=== PATIENT | female | born 1990 | race Caucasian/White ===

== ENCOUNTER 2017-02-25 09:19 | Outpatient (CLI) | payer BC | END 2017-02-25 09:20 | disposition home or self-care (01) | DX: Z79.899 Other long term (current) drug therapy (principal) ==

== ENCOUNTER 2018-06-09 08:00 | Outpatient (CLI) | payer OTHER | END 2018-06-09 08:01 | disposition home or self-care (01) | LOC: LAB 08:00 → DI 08:01 | PROVIDERS: ATTEND Nurse Practitioner Obstetrics & Gynecology | DX: Z36.9 Encounter for antenatal screening, unspecified (principal) ==

== ENCOUNTER 2018-06-09 14:23 | Outpatient (CLI) | payer OTHER ==
[2018-06-09 16:08] LABS: MUDS CUTOFF CONCENTRATIONS CUTOFF CONC BELOW:
[2018-06-09 16:26] LABS: AMPHETAMINE SCREEN,URINE NEGATIVE (NEGATIVE); BENZODIAZEPINES SCREEN, URINE NEGATIVE (NEGATIVE); COCAINE SCREEN URINE NEGATIVE (NEGATIVE); METHADONE SCREEN, URINE NEGATIVE (NEGATIVE); METHAMPHETAMINES SCREEN, URINE NEGATIVE (NEGATIVE); OPIATE SCREEN, URINE NEGATIVE (NEGATIVE); OXYCODONE SCREEN, URINE NEGATIVE (NEGATIVE); PROPOXYPHENE SCREEN, URINE NEGATIVE (NEGATIVE); TRICYCLIC ANTIDEPRESSANT,URINE NEGATIVE (NEGATIVE)
== END 2018-06-09 14:24 | disposition home or self-care (01) ==
LOC: LAB.R 14:23
PROVIDERS: ATTEND Nurse Practitioner Obstetrics & Gynecology
DX: Z36.9 Encounter for antenatal screening, unspecified (principal)
CPT/HCPCS: 80306; 87491; 87591

== ENCOUNTER 2018-06-09 14:49 | Outpatient (CLI) | payer OTHER ==
[2018-06-09 15:27] LABS: BASOPHILS % (AUTO) 0.4 %; EOSINOPHILS % (AUTO) 0.4 %; HGB - HEMOGLOBIN 12.5 g/dL (12.0-16.0); LYMPHOCYTES # (AUTO) 2.5 10^3/uL (1.5-3.5); LYMPHOCYTES % (AUTO) 26.2 %; MEAN CORPUSCULAR HEMOGLOBIN 32.2 pg (27.0-31.0); MEAN CORPUSCULAR HGB CONC 34.1 g/dL (32.0-36.0); MEAN CORPUSCULAR VOLUME 94.6 fL (81.0-99.0); MEAN PLATELET VOLUME 7.2 fL (7.9-10.8); MONOCYTES # (AUTO) 0.7 10^3/uL (0.0-1.0); MONOCYTES % (AUTO) 7.7 %; NEUTROPHILS # (AUTO) 6.2 10^3/uL (1.5-6.6); NEUTROPHILS % (AUTO) 65.3 %; PLT - PLATELET COUNT 323 10^3/uL (130-450); RED BLOOD COUNT 3.89 10^6/uL (4.20-5.40); RED CELL DISTRIBUTION WIDTH 12.8 % (12.0-15.0); WHITE BLOOD COUNT 9.5 x10^3/uL (4.8-10.8)
[2018-06-09 15:30] LABS: BILIRUBIN,URINE NEGATIVE (NEGATIVE); GLUCOSE, URINE (UA) NEGATIVE (NEGATIVE); KETONES,URINE (UA) TRACE mg/dL (NEGATIVE); LEUKOCYTE ESTERASE, URINE NEGATIVE (NEGATIVE); NITRITE,URINE NEGATIVE (NEGATIVE); OCCULT BLOOD,URINE TRACE-INTA (NEGATIVE); PROTEIN,URINE NEGATIVE (NEGATIVE); UROBILINOGEN,URINE 0.2 (NORMAL) E.U./dL (NORMAL)
[2018-06-09 15:31] LABS: CLARITY,URINE CLEAR (CLEAR)
[2018-06-09 15:36] LABS: BACTERIA,URINE Rare /HPF (None Seen); RBC,URINE 0-5 /HPF (0-5); SQUAMOUS EPITHELIAL CELL,UR MOD Squamous (<= Few)
[2018-06-10 13:21] LABS: HEPATITIS B SURFACE ANTIGEN NON-REACTIVE (NON-REACTIVE)
[2018-06-10 13:23] LABS: HEPATITIS C ANTIBODY NON-REACTIVE (NON-REACTIVE)
[2018-06-10 14:13] LABS: HIV AG/AB 4TH GEN NON-REACTIVE (NON-REACTIVE)
== END 2018-06-09 14:50 | disposition home or self-care (01) ==
LOC: LAB 14:49
PROVIDERS: ATTEND Nurse Practitioner Obstetrics & Gynecology
DX: Z36.9 Encounter for antenatal screening, unspecified (principal)
CPT/HCPCS: 36415; 76801; 76817; 80306; 81001; 81599; 85025; 86592; 86762; 86803; 86850; 86900; 86901; 87340; 87389; 87491; 87591

== ENCOUNTER 2018-06-23 13:00 | Outpatient (CLI) | payer OTHER | END 2018-06-23 13:01 | disposition home or self-care (01) | LOC: DI 13:00 | PROVIDERS: ATTEND Nurse Practitioner Obstetrics & Gynecology | DX: Z53.9 Procedure and treatment not carried out, unspecified reason (principal) ==

== ENCOUNTER 2018-09-01 12:39 | Outpatient (CLI) | payer OTHER ==
--- NOTE | 2018-09-01 15:53 | Ultrasound Report ---
Reason: ENCTR FOR SCREENING Procedure Date: 09/01/2018 Accession Number: [id number] / [id number] Procedure: US - OB Detailed Eval CPT Code: FULL RESULT: EXAM: COMPLETE OBSTETRICAL ULTRASOUND EXAM DATE: 09/01/2018 02:14 PM. CLINICAL HISTORY: anatomic survey. COMPARISON: 06/23/2018 TECHNIQUE: Real-time sonographic evaluation of the fetus performed by the flatwork catcher. Multiple senior human resources representative static images were saved for review. DATING: EGA 20 weeks 4 days with LEO 01/15/2019 based on LMP of 04/10/2018. EGA 21 weeks 0 days with LEO 01/12/2019 based on the current ultrasound. GENERAL EVALUATION Damian . Cardiac activity: 150 bpm. movement: Present. Presentation: Cephalic. Placenta: Posterior position. No evidence for previa. Umbilical cord: 3 vessel cord. Central placental cord origin. Amniotic fluid: Subjectively normal. MVP 4.4 cm. BIOMETRY Bi-Parietal Diameter (BPD): 5.1 cm, 21 weeks 3 days Head Circumference (HC): 18.6 cm, 20 weeks 6 days Abdominal Circumference (AC): 15.9 cm, 21 weeks 0 days Femur Length (FL): 3.4 cm, 20 weeks 5 days Estimated Weight: 385 gm, 63rd percentile . ANATOMY The intracranial structures, profile, face/nose/lips, spine, 4 chamber heart and outflow tracts, stomach, abdominal wall and cord insertion, diaphragm, kidneys, bladder, and extremities were seen and demonstrate no abnormality. MATERNAL STRUCTURES Uterus: Unremarkable. Cervix: Long and closed. Transabdominal length 3.5 cm. Right ovary/adnexa: Unremarkable. Left ovary/adnexa: Unremarkable. Free fluid: None. IMPRESSION: 1. Damian intrauterine with gestational age 21 weeks 0 days based on current ultrasound, concordant with the expected age by LMP. 2. Estimated weight is within expected limits for assigned dating. 3. Normal anatomic survey. No anatomic abnormalities are detected at this time. RADIA
== END 2018-09-01 12:40 | disposition home or self-care (01) ==
LOC: DI 12:39
PROVIDERS: ATTEND Registered Nurse
DX: Z36.9 Encounter for antenatal screening, unspecified (principal); Z3A.21 21 weeks gestation of pregnancy
CPT/HCPCS: 76811

== ENCOUNTER 2018-10-27 12:34 | Outpatient (CLI) | payer OTHER ==
[2018-10-27 13:38] LABS: BASOPHILS % (AUTO) 0.2 %; EOSINOPHILS % (AUTO) 0.5 %; LYMPHOCYTES % (AUTO) 13.9 %; MEAN CORPUSCULAR HEMOGLOBIN 33.2 pg (27.0-31.0); MEAN CORPUSCULAR HGB CONC 35.4 g/dL (32.0-36.0); MEAN CORPUSCULAR VOLUME 93.8 fL (81.0-99.0); MEAN PLATELET VOLUME 6.9 fL (7.9-10.8); NEUTROPHILS % (AUTO) 77.4 %; PLT - PLATELET COUNT 360 10^3/uL (130-450); RED CELL DISTRIBUTION WIDTH 12.7 % (12.0-15.0)
[2018-10-27 13:55] LABS: ABNORMAL LYMPHS % (MANUAL) 0 %; BAND NEUTROPHILS % (MANUAL) 0 %
[2018-10-27 14:12] LABS: LYMPHOCYTES # (MANUAL) 1.4 10^3/uL (1.5-3.5); LYMPHOCYTES % (MANUAL) 12 %; METAMYELOCYTES % (MANUAL) 1 %; MONOCYTES # (MANUAL) 0.8 10^3/uL (0.0-1.0); MYELOCYTES % (MANUAL) 1 %; NEUTROPHILS # (MANUAL) 9.5 10^3/uL (1.5-6.6); NEUTROPHILS % (MANUAL) 79 %
[2018-10-27 14:13] LABS: DIFFERENTIAL COMMENT MANUAL DIFFERENTIAL
[2018-10-27 15:03] LABS: HB2 TOTAL 11.1 g/dL; HEMOGLOBIN A1C 0.46 g/dL; HEMOGLOBIN A1C % 5.9 % (4.6-6.2)
== END 2018-10-27 12:35 | disposition home or self-care (01) ==
LOC: LAB 12:34
PROVIDERS: ATTEND Registered Nurse
DX: Z34.82 Encounter for supervision of other normal pregnancy, second trimester (principal)
CPT/HCPCS: 36415; 82950; 83036; 85025; 86850

== ENCOUNTER 2018-12-15 08:00 | Outpatient (CLI) | payer OTHER | END 2018-12-15 23:59 | disposition home or self-care (01) | LOC: LAB.R 08:00 | PROVIDERS: ATTEND Registered Nurse | DX: Z33.1 Pregnant state, incidental (principal); O09.72 Supervision of high risk pregnancy due to social problems, second trimester | CPT/HCPCS: 87081; 87491; 87591; 87797 ==

== ENCOUNTER 2018-12-25 05:03 | Inpatient (IN) | payer MEDICAID, OTHER ==
[2018-12-25 05:55] LABS: RUPTURE OF MEMBRANES PLUS POSITIVE (NEGATIVE)
[2018-12-25] MEDS ORDERED: SODIUM CHLORIDE FLUSH 0.9% 10 ML SYRINGE IVP PRN (06:23)
[2018-12-25] MEDS ORDERED: SODIUM CHLORIDE FLUSH 0.9% 10 ML SYRINGE ONE (06:25)
[2018-12-25] MEDS ORDERED: OXYTOCIN/SODIUM CHLORIDE 500 ML IV SCH (07:00)
[2018-12-25 07:20] LABS: BASOPHILS % (AUTO) 0.2 %; EOSINOPHILS # (AUTO) 0.1 10^3/uL (0.0-0.7); EOSINOPHILS % (AUTO) 0.4 %; HGB - HEMOGLOBIN 11.2 g/dL (12.0-16.0); LYMPHOCYTES # (AUTO) 1.8 10^3/uL (1.5-3.5); MEAN CORPUSCULAR HEMOGLOBIN 32.6 pg (27.0-31.0); MEAN CORPUSCULAR HGB CONC 33.8 g/dL (32.0-36.0); MEAN CORPUSCULAR VOLUME 96.5 fL (81.0-99.0); MEAN PLATELET VOLUME 7.9 fL (7.9-10.8); MONOCYTES # (AUTO) 1.1 10^3/uL (0.0-1.0); NEUTROPHILS # (AUTO) 10.2 10^3/uL (1.5-6.6); NEUTROPHILS % (AUTO) 77.4 %; PLT - PLATELET COUNT 306 10^3/uL (130-450); RED BLOOD COUNT 3.43 10^6/uL (4.20-5.40); RED CELL DISTRIBUTION WIDTH 13.3 % (12.0-15.0); WHITE BLOOD COUNT 13.2 x10^3/uL (4.8-10.8)
[2018-12-25] MEDS: SODIUM CHLORIDE FLUSH 0.9% 10 ML SYRINGE IVP SCH ×2 (08:30→17:04)
[2018-12-25] MEDS: LACTATED RINGERS 1,000 ML IV SCH ×2 (09:00→14:46)
[2018-12-25] MEDS ORDERED: VANCOMYCIN INJ 2 GM in SODIUM CHLORIDE 0.9% 500 ML IV SCH (09:00)
[2018-12-25] MEDS ORDERED: fentaNYL 100 MCG/2 ML VIAL ONE ×3 (09:44→19:39)
[2018-12-25] MEDS ORDERED: ROPIVACAINE 0.2% PF 20 ML AMPULE ONE ×2 (09:45→15:54)
[2018-12-25] MEDS ORDERED: METOCLOPRAMIDE 10 MG/2 ML VIAL IVP PRN ×2 (09:46→11:19)
[2018-12-25] MEDS ORDERED: NALOXONE 0.4 MG/ML VIAL IVP PRN ×2 (09:46→11:19)
[2018-12-25] MEDS ORDERED: LACTATED RINGERS 500 ML IV ONE ×2 (09:46→11:19)
[2018-12-25] MEDS ORDERED: fent/BUPIV 2 MCG/0.125% 250 ML EP PRN (09:46)
[2018-12-25] MEDS ORDERED: ePHEDrine 50 MG/ML VIAL IVP PRN ×2 (09:46→11:19)
[2018-12-25] MEDS ORDERED: ONDANSETRON 4 MG/2 ML VIAL IVP PRN ×2 (09:46→11:19)
[2018-12-25] MEDS ORDERED: diphenhydrAMINE INJ 50 MG/ML VIAL IVP PRN ×2 (09:46→11:19)
[2018-12-25] MEDS ORDERED: NALBUPHINE 10 MG/ML AMP IVP PRN ×2 (09:46→11:19)
[2018-12-25] MEDS ORDERED: fent/BUPIV 2 MCG/0.125% 250 ML EP ONE (10:58)
[2018-12-25] MEDS: ONDANSETRON 4 MG/2 ML VIAL IVP PRN ×2 (11:23→16:31)
--- NOTE | 2018-12-25 11:25 | ANESTHESIA ---
Pre-Anesthesia VS, & Labs - Diagnosis Active labor - Procedure Continuous labor epidural Vital Signs: Temp Pulse Resp BP Pulse Ox 36.5 C 112 H 24 126/86 H 100 12/25/18 05:15 12/25/18 05:15 12/25/18 05:15 12/25/18 05:15 12/25/18 05:15 Height 5 ft 6 in Weight (kg) 111.584 kg - NPO Other - Is Patient ?: Yes - Lab Results Current Lab Results: Laboratory Tests 12/25/18 06:50: WBC 13.2 H, RBC 3.43 L, Hgb 11.2 L, Hct 33.1 L, MCV 96.5, MCH 32.6 H, MCHC 33.8, RDW 13.3, Plt Count 306, MPV 7.9, Neut # (Auto) 10.2 H, Lymph # (Auto) 1.8, [place] # (Auto) 1.1 H, Eos # (Auto) 0.1, Baso # (Auto) 0.0, Absolute Nucleated RBC 0.00, Nucleated RBC % 0.0 Fish Bones: 12/25/18 06:50 Home Medications and Allergies Active Medications Diphenhydramine HCl (Benadryl Inj) 12.5 - 25 mg IVP Q6HR PRN PRN Reason: ITCHING Ephedrine Sulfate () 5 mg IVP Q5M PRN PRN Reason: For SBP<100;give until SBP>100 Lactated Ringer's (Lr) 1,000 mls @ 150 mls/hr IV .Q6H40M KYMBERLY Last Admin: 12/25/18 09:00 Dose: 150 mls/hr Oxytocin/Sodium Chloride (Pitocin/Sodium Chloride) 500 mls @ 1 mls/hr IV TITR KYMBERLY; Protocol Last Admin: 12/25/18 11:05 Dose: 1 milliunit/min, 1 mls/hr Vancomycin HCl 2 gm/ Sodium (Chloride) 500 mls @ 167 mls/hr IV ONCE KYMBERLY; Protocol Stop: 12/25/18 12:00 Last Admin: 12/25/18 09:28 Dose: 167 mls/hr Vancomycin HCl 1 gm/ Sodium (Chloride) 250 mls @ 167 mls/hr IV Q12H KYMBERLY Fentanyl/Bupivacaine/Sodium Chlor (Fent/Bupiv 2 Mcg/0.125%) 250 mls @ 0 mls/hr EP .Q0M PRN; Protocol PRN Reason: PAIN Last Admin: 12/25/18 11:17 Dose: 12 mls/hr Metoclopramide HCl (Reglan Inj) 10 mg IVP Q6HR PRN PRN Reason: Nausea / Vomiting Nalbuphine HCl (Nubain) 2.5 - 5 mg IVP Q4H PRN PRN Reason: ITCHING Naloxone HCl (Narcan) 0.1 mg IVP Q2M PRN PRN Reason: RR<8 Ondansetron HCl (Zofran Inj) 4 mg IVP Q4H PRN PRN Reason: Nausea / Vomiting Ondansetron HCl (Zofran Inj) 4 mg IVP Q6HR PRN PRN Reason: Nausea / Vomiting Sodium Chloride (Normal Saline Flush 0.9%) 10 ml IVP PRN PRN PRN Reason: NEEDED PER PROVIDER ORDERS Last Admin: 12/25/18 07:03 Dose: 10 ml Sodium Chloride (Normal Saline Flush 0.9%) 10 ml IVP 0100,0900,1700 KYMBERLY Last Admin: 12/25/18 08:30 Dose: 10 ml Allergies/Adverse Reactions: Allergies Allergy/AdvReac Type Severity Reaction Status Date / Time Penicillins Allergy Unknown Verified 12/25/18 05:54 acetaminophen [From Percocet] AdvReac Nausea Verified 12/25/18 05:54 codeine AdvReac Nausea Verified 12/25/18 05:54 eszopiclone [From Lunesta] AdvReac Hallucinati Verified 12/25/18 05:54 ons hydrocodone [From Vicodin] AdvReac Nausea Verified 12/25/18 05:54 oxycodone [From Percocet] AdvReac Nausea Verified 12/25/18 05:54 quetiapine [From Seroquel] AdvReac Hallucinati Verified 12/25/18 05:54 ons Anes History & Medical History - Anesthetic History Anesthesia Complications: reports: No previous complications Family history of Anesthesia Complications: Denies Family history of Malignant Hyperthermia: Denies - Medical History Cardiovascular: reports: None Pulmonary: reports: None Gastrointestinal: reports: None Urinary: reports: None Neuro: reports: Head injury, Seizure disorder Endocrine/Autoimmune: reports: None Blood Disorders: reports: None Skin: reports: None Smoking Status: Current every day smoker Psychosocial: reports: Anxiety, Other (Former meth addict, shows severe anxiety and fear of any pain) Exam General: Alert, Moderate distress Dental: WNL Mouth Opening: Greater than 4 Fingerbreadths Neck Mobility: Normal Mallampati classification: II Thyromental Distance: greater than 6 cm Respiratory: Lungs clear Cardiovascular: Regular rate Mental/Cognitive Status: Alert/Oriented X3 Cognitive Status: Other (describe below) (Severe anxiety, complains of any kind of pain as the worst she has ever experienced.) Plan Anesthesia Type: Epidural Consent for Procedure(s) Verified and Reviewed: Yes Code Status: Attempt Resuscitation ASA classification: 3-Severe systemic disease Is this case an emergency?: Yes
--- NOTE | 2018-12-25 12:38 | HISTORY & PHYSICAL EXAMINATION ---
Admit History - Visit Reason Visit Reason: Membranes rupture - : 2 Parity: 0 Premature: 0 Ectopic: 0 : 1 Care: positive: [facility] Risk/History: positive: None Smoking Status: Current every day smoker - Mother's Labs Mother's Blood Type: positive: O Mother's RH: positive: Positive GBS: positive: Group B Strep Positive Rubella Status: positive: Immune Meds/Allgy - Allergies Allergies/Adverse Reactions: Allergies Allergy/AdvReac Type Severity Reaction Status Date / Time Penicillins Allergy Unknown Verified 12/25/18 05:54 acetaminophen [From Percocet] AdvReac Nausea Verified 12/25/18 05:54 codeine AdvReac Nausea Verified 12/25/18 05:54 eszopiclone [From Lunesta] AdvReac Hallucinati Verified 12/25/18 05:54 ons hydrocodone [From Vicodin] AdvReac Nausea Verified 12/25/18 05:54 oxycodone [From Percocet] AdvReac Nausea Verified 12/25/18 05:54 quetiapine [From Seroquel] AdvReac Hallucinati Verified 12/25/18 05:54 ons Review of Systems - Constitutional Constitutional: denies: Fatigue, Fever, Chills, Malaise - Cardiovascular Cariovascular: reports: Edema. denies: Irregular heart rate, Palpitations, Chest pain, Lightheadedness - Respiratory Respiratory: denies: Cough, Wheezing, SOB at rest - Gastrointestinal Gastrointestinal: denies: Abdominal pain, Constipation, Diarrhea, Change in bowel habits, Bloody stools, Nausea, Vomiting - Genitourinary Genitourinary: denies: Dysuria, Frequency, Urgency, Hematuria - Integumentary Integumentary: denies: Rash, Pruritis - Neurological Neurological: denies: Headache - Psychiatric Psychiatric: reports: Anxiety. denies: Depression, Suicidal, Delusions, Hallucinations, Homicidal Physical - Abdominal Exam Vital Signs: Temp Pulse Resp BP Pulse Ox 36.5 C 112 H 24 126/86 H 100 12/25/18 05:15 12/25/18 05:15 12/25/18 05:15 12/25/18 05:15 12/25/18 05:15 Contraction Frequency (min/apart): irregular/infrequent Contraction Intensity: positive: Mild Uterine Resting Tone: positive: Soft - Monitoring Heart Rate Baseline: 130 Strip Review: positive: Category I - Presentation Presentation: positive: Vertex - Vaginal Exam Membranes: positive: Membranes ruptured Dilation (in cm): 2-3 Effacement (%): 80 Station: positive: -1 Cervical Position: positive: Midposition - Speculum Exam Speculum Exam Performed: positive: No Findings: positive: Gross leak Plan for Labor - Plan For Labor I expect patient to be DC'd or transferred within 96 hours.: Yes Plan for Labor: HPI: Sarabjit is a 28yo @ 37.0wks gestation who presented at approximately 0515 with c/o grossly ruptured membranes. She denies contractions. She denies VILLALBA, visual disturbances, RUQ or epigastric pain. Reports +FM. Reports she is very nervous about the and wants it to be over with. She is currently smoking 8-10 tobacco cigarettes per day and declines nicotine patch. She is a patient of [facility] who has received regular care. Her has been complicated only by THC and tobacco use throughout her . Pt is currently smoking 8-10 cigarettes daily and does not desire to quit at this time. Her Hx is significant for methamphetamine use and received inpatient treatment for 2.5 years. She has been sober x 7 years. She is enrolled in [facility] and has had 2 visits including 1 home visit with [facility] RN. Dating criteria: 1.) LMP 04/10/2018 2.) First ultrasound 06/09/2018 @ 8w4d c/w LMP dating OB History: G1: Age 15-16yo , approximately 20 wks gestation SAB. Pt did not present to the hospital and reports little memory of this time in her life due to heavy methamphetamine use. She has no recollection of delivering the baby. 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 Meds: PNV, Hydroxyzine, Flovent PRN Allergies: Penicillin, lunesta, Seroquel, percoct, Vicodin, codeine labs: Blood type: O pos Antibody: negative Hgb: 12.5; Hct: 36.8; PLT:323 Rubella: immune HIV: non-reactive GC/CT: neg Hep B: non-reactive; Hep C: non-reactive RPR: non-reactive UTOX: +THC Hgb A1C 5.9% Genetic Testin week labs Hgb: 11.0 Antibody: negative 1 hour GTT: 108 36wk Labs: GBS: Positive GC/CT negative Immunizations: Flu 09/08/2018; Tdap 10/27/2018 Ultrasounds: 06/14/2018 U/S reveals single, viable, intrauterine with average CRL c/w 8w4d gestation which is c/w LMP dating for LEO 01/15/2019. 06/25/2018 1st trimester ultrasound reveals, single, viable, intrauterine with average CRL c/w 10w5d gestation. Posterior placenta. Size c/w LMP dating. 09/03/2018 FAS WNL. Posterior placenta, no previa. 3VC. ELOY WNL. Size c/w dates. Physical Exam: Heart RRR w/o M/G/R Lungs CTAB Abdomen gravid, soft, nontender Bilateral LEs 1+ edema FHTs 130s, moderate variability, + accels, no decels Contractions palpate mild. Infrequent and intermittent EFW 3400g SVE: 2-3/80/-1, posterior, vertex Assessment: 28yo @ 37.0 wks gestation by L=8.4wk U/S PROM FHT Category I GBS positive Plan: Admit for active management of PROM Initiate Vancomycin for GBS prophylaxis to be administered q 12 hrs secondary to penicillin allergy. Epidural per maternal request Initiate Pitocin via IV with titration per protocol for augmentation of labor. Anticipate spontaneous vaginal delivery.
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
[2018-12-25] MEDS ORDERED: ONDANSETRON 4 MG/2 ML VIAL ONE (19:48)
--- NOTE | 2018-12-25 20:47 | PROVIDER PROGRESS NOTE ---
Labor Progress Note - Uterine Monitoring Uterine Monitoring Mode: positive: External toco Contraction Frequency (min/apart): 2-3 Contraction Intensity: positive: Strong Uterine Resting Tone: positive: Soft - Monitoring Monitor Mode: positive: External ultrasound Heart Rate Baseline: 120 Heart Rate Variability: positive: Moderate (6-25 bmp) Accelerations: positive: Present, 15x15 Decelerations: positive: Variable, Intermittent (<50% x20 min) Strip Review: positive: Category II - Vaginal Exam Dilation (in cm): 10 Effacement (%): 100 Station: 1 - Labor Progress Note Labor Progress Note/Additional Text: S: Patient comfortable with epidural. Feeling very nauseous and is so anxious to get this baby out. FOB present at the bedside. O: FHR baseline 120s, moderate variability, + accels, intermittent late decelerations. Contractions palpate firm every 2-3 minutes with soft resting tone. BP 131/80, HR 100, T 36.5 A: 28yo @ 37.0wks gestation by L=8.4wk U/S Active labor Pitocin infusion @ 9mU/mL GBS positive - s/p 1 dose Vancomycin - 2nd dose pending initiation now FHR Category II - overall reassuring P: Beginning second stage Anticipate spontaneous vaginal delivery.
[2018-12-25] MEDS ORDERED: VANCOMYCIN INJ 1 GM in SODIUM CHLORIDE 0.9% 250 ML IV SCH (21:00)
[2018-12-25] MEDS ORDERED: HYDROCORTISONE 1% CREAM 28 GM TUBE PR PRN (23:02)
[2018-12-25] MEDS ORDERED: WITCH HAZEL/GLYCERIN 1 EACH MED..PAD TOP PRN (23:02)
[2018-12-25] MEDS ORDERED: OXYTOCIN/SODIUM CHLORIDE 500 ML IV PRN (23:06)
[2018-12-25] MEDS ORDERED: ACETAMINOPHEN 500 MG TABLET PO PRN (23:09)
--- NOTE | 2018-12-25 23:32 | DELIVERY NOTE ---
Delivery Note - Labor Labor: positive: Augmented by oxytocin - Delivery Method Delivery Method: positive: Spontaneous vaginal delivery - Presentation Presentation: positive: Vertex, EDDIE - right occiput anterior - Nuchal Cord Nuchal Cord: positive: None - Anesthetic Anesthetic Type: - Amniotic Fluid Description Amniotic Fluid Description: positive: Clear - Episiotomy Type Episiotomy Type: positive: None - Laceration Laceration: positive: 1st degree, Labial, Vaginal - Suture Suture Type: positive: Vicryl Suture Size: positive: 3-0, 4-0 - Delivery Outcome Delivery Outcome: positive: Livebirth - [place] : positive: Placed in direct skin contact with mother, Bulb syringe, Stimulated, Warmed, Crane used sex: positive: Male - Cord Cord: positive: 3 vessels - Placenta Placenta: positive: Intact, Spontaneous - Estimated Blood Loss Estimated Blood Loss (in cc): 200 - Post Delivery Events Post Delivery Events: positive: No post delivery events - Delivery Comments (Free Text/Narrative) Delivery Comments (Free Text/Narrative): This 29yo @ 37.0wks gestation by L=8.4wk U/S presented on 12/25/2018 at approximately 0500 with c/o leakage of large amounts of clear vaginal fluid. Upon arrival she was noted to have grossly ruptured membranes. Cervical exam 2-3/80/-1, posterior, vertex. Epidural placed per maternal request. She received a 2g loading dose of Vancomycin x 1, followed by a 1g dose 12 hours later x 1. Labor was augmented with Pitocin via IV and was titrated per protocol for a max infusion rate of 9mU/mL. FHR pattern demonstrated Category I tracing throughout labor with brief, intermittent periods of Category II immediately prior to initiation of the second stage. The patient progressed to c/c/+1 at 0 with active pushing was initiated at 2101. Normal of viable male infant on 12/25/2018 at 2210. No nuchal cord. Apgars 8/9 at 1 and 5 min respectively. The was placed on maternal abdomen, stimulated, dried, and placed skin to skin. The umbilical cord was allowed to stop pulsating at which time it was doubly clamped and cut by CNM. Cord blood was obtained. Placenta delivered spontaneously and intact at 2217. 3VC. Pitocin administered via IV for hemostasis. EBL 200mL. Uterine fundus firm and there is no excessive bleeding. The perineum, vagina, and cervix were inspected and found to have minor first degree vaginal laceration which was repaired with 3-[address]-1 needle, minor left labial laceration repaired with 1 interrupted stitch using 4-0 vicryl on an SH needle, right upper labial laceration repaired using 2 interrupted stitches with 4-[address]-1 needle. All repairs were completed in standard fashion under sterile conditions. Vaginal examination following repair completed and tissues well approximated. Skin to skin initiated. Family bonding well. Both mother and baby were left in stable condition.
[2018-12-26] MEDS: IBUPROFEN 800 MG TABLET PO SCH ×4 (00:23→20:24)
--- NOTE | 2018-12-26 08:33 | PROVIDER PROGRESS NOTE ---
Subjective - Subjective Subjective: S: Bonding well with baby. She continues to be very anxious which is not unlike her baseline for her but may be slightly exacerbated since the arrival of the baby. She is with help and has found it difficult to get baby latched. With help of RN at the bedside was able to get a 20 minute feed in this morning but this was the first time she was able to get baby latched. She hand expressed and syringe fed colostrum last night and in addition, the baby was given formula supplementation. She has also been experiencing neck and upper back pain with movement. She states the pain feels better when she is laying down flat. She was able to stand up and walk around for approximately 5 minutes before the onset of the pain. When she coughs she feels the pain worsens signi ficantly and it takes approximately 5-10 minutes of her remaining still without head rotation before the pain diminishes. She reports when the anesthesia provider was placing her epidural he told her that she may experience a headache after placement. She strongly desires to go outside to smoke but does not have pants with her, as the ones she came to the hospital in are soaking wet with amniotic fluid. She refuses a nicotine patch and reports no desire to stop smoking. She states her perineum is comfortable and her bleeding has decreased. FOB/Boyfriend Ayan sleeping at bedside. O: BP 134/86, HR 103, RR 24, T 36.3 Heart RRR w/o M/G/R, lungs CTAB, abdomen soft and nontender with fundus deep at U-1, perineum intact, repair without edema, bilateral LE's 1+ edema, Mood is good. A: 28yo -->P1 PPD#1 s/p TSVD of viable male named Ryan over intact perineum 1st degree labial and minor 1st degree vaginal lacerations intact and without edema. GBS positive - adequately treated in labor Current every day smoker P: Continue routine pp care and medications. Social work consultation ordered secondary to patient's hx and high level of anxiety. Will have [facility] clinic RN contact Preeti [facility], Public Health, RN to notify her of patient's status and encourage contact with the patient to continue home visits. Special attention paid to today. Strongly advised smoking cessation and discouraged pt from leaving the unit for a cigarette. Thoroughly discussed nicotine patch and patient continues to decline. Will evaluate for discharge home tomorrow. Pt verbalized understanding and agrees to above plan. She denies further questions or concerns at this time. Objective - Vital Signs/Intake & Output Vital Signs: Vital Signs x48h Temp Pulse Resp BP Pulse Ox 12/26/18 05:42 103 H 24 134/86 H 99 12/26/18 02:40 106 H 18 120/80 12/26/18 01:15 36.6 C 107 H 20 135/84 H 100 Intake & Output: Intake & Output 12/23/18 12/24/18 12/25/18 12/26/18 23:59 23:59 23:59 23:59 Intake Total 2178.133 Output Total 1150 1275 Balance 1029.413 -6727 - Lab Results Fish Bones: 12/25/18 06:50
[2018-12-26] MEDS: ONDANSETRON 4 MG/2 ML VIAL IVP PRN (08:42)
[2018-12-26] MEDS: SODIUM CHLORIDE FLUSH 0.9% 10 ML SYRINGE IVP SCH ×2 (08:42→20:24)
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
[2018-12-26] MEDS: DOCUSATE SODIUM 100 MG CAPSULE PO SCH (13:27)
[2018-12-26] MEDS: NICOTINE 14 MG PATCH TOP SCH (13:28)
[2018-12-27 09:11] VITALS: BP 131/78
[2018-12-27] MEDS: SODIUM CHLORIDE FLUSH 0.9% 10 ML SYRINGE IVP SCH (09:11)
[2018-12-27] MEDS: DOCUSATE SODIUM 100 MG CAPSULE PO SCH (09:12)
[2018-12-27] MEDS: IBUPROFEN 800 MG TABLET PO SCH (09:12)
[2018-12-27] MEDS: NICOTINE 14 MG PATCH TOP SCH (09:12)
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
--- NOTE | 2018-12-27 10:30 | Discharge Plan ---
Discharge Plan Disposition: 01 Home, Self Care Condition: Good Diet: Regular Activity Restrictions: No Restrictions Shower Restrictions: No Driving Restrictions: No No Smoking: If you smoke, Please STOP! Call for help. Follow-up with: Gracia Barrera CNM, ARNP [Provider Admit Priv/Credential] -
--- NOTE | 2018-12-27 11:23 | Labor Flowsheet ---
Labor Flowsheet Datetime Report Generated by CPN: 12/27/2018 11:23 Datetime: 12/27/2018 08:48 VITAL SIGNS NBP Sys/Sanaz/Mean (mmHg): 131 : 78 : 89 Pulse: 104 LaborFlag: Labor Datetime: 12/26/2018 05:35 SpO2 (%): 99 Datetime: 12/26/2018 04:17 Membranes Ruptured Date/Time: 12/25/2018 04:00 Membranes Rupture Method: Spontaneous Amniotic Fluid Color: Clear Amniotic Fluid Amount: Moderate Amniotic Fluid Odor: None Datetime: 12/25/2018 22:31 Respirations: 20 Temperature (C): 36.7 Datetime: 12/25/2018 22:10 UTERINE ACTIVITY Monitor Mode: External Monitor Interventions for UA: [place] Adjusted Frequency (min): 1.5-2 Quality: Moderate Duration (sec): 30-60 Pattern: Normal: <= 5 Contractions in 10 Minutes Resting Tone (Palpate): Relaxed Comments: unable to assess heart rate due to maternal pushing; @ 2210 Datetime: 12/25/2018 22:00 ASSESSMENT A Monitor Mode: External US Monitor Interventions for FHR: Ultrasound Adjusted Variability: Moderate 6-25 bpm Datetime: 12/25/2018 21:30 FHR Baseline Rate : 125 Accelerations: 15X15 Decelerations: Early Category: Category I Datetime: 12/25/2018 21:15 Contraction Comments: started pushing @ 2102 Datetime: 12/25/2018 21:02 STAGE 2 Pushing: Coached on Pushing Pushing Position: Pushing with Contractions; Pushing Lithotomy Datetime: 12/25/2018 20:57 I/O Interventions: Jung Discontinued Datetime: 12/25/2018 20:40 VAGINAL EXAM Dilatation (cm): 10.0 Effacement (%): 100 Exam by: A Bruce Datetime: 12/25/2018 20:39 COMMUNICATION Communication: Provider at Bedside Communication Comments: A Bruce CNM here Datetime: 12/25/2018 20:30 FHR Baseline Changes: No Baseline Change Datetime: 12/25/2018 20:15 Patient Care Comments: vomiting Datetime: 12/25/2018 20:08 PAIN Pain Scale: 10 Datetime: 12/25/2018 19:59 Patient Position/Activity: Left Lateral Datetime: 12/25/2018 19:56 Anesthesia Level Check: T8- Ribs Datetime: 12/25/2018 19:36 Provider Notified (Name): A Bruce CNM Notification Reason: Status Update Datetime: 12/25/2018 19:12 Anesthesia Comments: Notified provider of pt c/o pain and N/V associated with epidural boluses Datetime: 12/25/2018 19:08 Station: 0 Datetime: 12/25/2018 18:53 MEDICATIONS Pitocin (milliunits): Increased to @ 9 Datetime: 12/25/2018 18:08 Pain Assessment Comments: pt called stating more pain in her vagina with the contractions, tried an epidural [facility] bolus Datetime: 12/25/2018 17:58 Stage of : Labor Datetime: 12/25/2018 17:12 Cervix, Position: Midposition Datetime: 12/25/2018 16:32 Antiemetics/Antacids: Zofran (mg) @ 4 Datetime: 12/25/2018 16:12 Pain Location: Neck Datetime: 12/25/2018 15:52 Epidural Procedure Other: Redose Datetime: 12/25/2018 12:10 Vaginal Exam Comments: no change Datetime: 12/25/2018 11:02 Epidural Procedure: Loading Dose Datetime: 12/25/2018 09:45 PROCEDURE TIME OUT Procedure Verify: Correct Patient Identity; Correct Side and Site are Marked; Accurate Procedure Co nsent Form; Agreement on Procedure to be Done; Correct Patient Position; Relevant Images and Results are Properly Labeled and Displayed; Addressed Need to Administer Antibiotics or Fluids for Irrigation ; Safety Precautions Based on Patient History or Medication Use ANESTHESIA Epidural Positioning: Sitting Datetime: 12/25/2018 08:56 PATIENT CARE IV/Blood Work: IV Bolus Started Datetime: 12/25/2018 08:52 Vital Sign Comments: pt anxious d/t pain with ctx Pain Presence: Intermittent
--- NOTE | 2018-12-27 13:33 | DISCHARGE SUMMARY ---
please verify if other info missing audio cut out after date of admission, resumed at "next # GBS pos. Pls remove this flag before signing, thanks Physician: REMY Santos DATE OF ADMISSION: 12/25/2018 DATE OF DISCHARGE: 12/27/2018 DIAGNOSES (0:18) 1. Group B streptococcus positive. 2. Tobacco use. 3. Normal recovery. BRIEF HISTORY: She is a patient of [facility] who presented on 12/25/2018, with complaints of rupture of membranes. Upon her arrival, she was noted to be grossly ruptured and the cervix was 2-3, 80%, -1, and vertex. She received a 2 gram loading dose of vancomycin x1 secondary to PENICILLIN ALLERGY and GBS positive status, followed by a 1 gram dose 12 hours later x1. Epidural in place, per maternal request. Labor was augmented with Pitocin via IV and was titrated per protocol for a max infusion rate of 9 mU/mL. She progressed to spontaneously deliver a viable male infant on 12/25/2018 at 2210. No nuchal cord. Apgars 8 and 9 at one and five minutes, respectively. She was found to have a first-degree vaginal laceration and a right upper labial laceration, which were repaired in a standard fashion under sterile conditions, and are all intact, and repair without edema at present. Estimated blood loss 200 mL. She has been doing well in her course. She is ambulating and tolerating a regular diet. She is urinating without difficulty and her lochia is normal. Her pain is well controlled with oral medications. She will be discharged home today on day #2 with a prescription for ibuprofen 800 mg, take 1 tab q.8 hours p.r.n. pain. She has been encouraged to continue her vitamin while . She knows to follow up with myself at [facility] in 1 week for support visit and in 3 weeks for a routine visit. She has been given precautions to call if she has any worsening fevers, chills, abdominal pain, increased bleeding, or foul- smelling vaginal lochia. TD: 12/27/2018 10:42 MTDD
== END 2018-12-27 11:20 | disposition home or self-care (01) | DRG 807 ==
LOC: WFO 05:03 → FBP 05:04 → WFO 06:33 → FBP 06:34
PROVIDERS: ADMIT Nurse Practitioner Obstetrics & Gynecology; ATTEND Nurse Practitioner Obstetrics & Gynecology
PROC: 10E0XZZ Delivery of Products of Conception, External Approach (ICD-10-PCS; principal; 2018-12-25)
PROC: 3E0R3GC Introduction of Other Therapeutic Substance into Spinal Canal, Percutaneous Approach (ICD-10-PCS; 2018-12-26)
DX: O42.92 Full-term premature rupture of membranes, unspecified as to length of time between rupture and onset of labor (principal); Z37.0 Single live birth; Z3A.37 37 weeks gestation of pregnancy; O99.334 Smoking (tobacco) complicating childbirth; F17.210 Nicotine dependence, cigarettes, uncomplicated; O99.824 Streptococcus B carrier state complicating childbirth; O70.0 First degree perineal laceration during delivery; O99.214 Obesity complicating childbirth; E66.9 Obesity, unspecified; F31.9 Bipolar disorder, unspecified; O99.344 Other mental disorders complicating childbirth; F41.9 Anxiety disorder, unspecified; F42.9 Obsessive-compulsive disorder, unspecified; G43.909 Migraine, unspecified, not intractable, without status migrainosus; K58.9 Irritable bowel syndrome, unspecified; O26.893 Other specified pregnancy related conditions, third trimester; Z88.0 Allergy status to penicillin; O74.5 Spinal and epidural anesthesia-induced headache during labor and delivery; M54.9 Dorsalgia, unspecified; M54.2 Cervicalgia; Z89.022 Acquired absence of left finger(s)
CPT/HCPCS: 84112; 85025; 99214

== ENCOUNTER 2018-12-28 14:20 | Outpatient (CLI) | payer MEDICAID ==
[2018-12-28 14:37] LABS: BILIRUBIN,URINE NEGATIVE (NEGATIVE); GLUCOSE, URINE (UA) NEGATIVE (NEGATIVE); KETONES,URINE (UA) NEGATIVE (NEGATIVE); LEUKOCYTE ESTERASE, URINE LARGE (NEGATIVE); NITRITE,URINE NEGATIVE (NEGATIVE); OCCULT BLOOD,URINE LARGE (NEGATIVE); PH,URINE 6.5 PH (5.0-7.5); PROTEIN,URINE NEGATIVE (NEGATIVE); UROBILINOGEN,URINE 0.2 (NORMAL) E.U./dL (NORMAL)
[2018-12-28 14:38] LABS: CLARITY,URINE HAZY (CLEAR)
[2018-12-28 14:45] LABS: WBC CLUMPS,URINE PRESENT
[2018-12-28 14:46] LABS: BACTERIA,URINE Rare /HPF (None Seen); SQUAMOUS EPITHELIAL CELL,UR FEW Squamous (<= Few)
== END 2018-12-28 14:21 | disposition home or self-care (01) ==
LOC: LAB 14:20
PROVIDERS: ATTEND Nurse Practitioner Obstetrics & Gynecology
DX: N39.0 Urinary tract infection, site not specified (principal)
CPT/HCPCS: 81001; 81003; 87086

== ENCOUNTER 2018-12-29 16:45 | Emergency (ER) | payer MEDICAID ==
[2018-12-29 17:30] LABS: BASOPHILS # (AUTO) 0.1 10^3/uL (0.0-0.1); BASOPHILS % (AUTO) 0.5 %; EOSINOPHILS # (AUTO) 0.2 10^3/uL (0.0-0.7); EOSINOPHILS % (AUTO) 1.3 %; HGB - HEMOGLOBIN 11.3 g/dL (12.0-16.0); LYMPHOCYTES # (AUTO) 2.1 10^3/uL (1.5-3.5); LYMPHOCYTES % (AUTO) 16.9 %; MEAN CORPUSCULAR HEMOGLOBIN 31.9 pg (27.0-31.0); MEAN CORPUSCULAR HGB CONC 33.1 g/dL (32.0-36.0); MEAN CORPUSCULAR VOLUME 96.3 fL (81.0-99.0); MEAN PLATELET VOLUME 6.8 fL (7.9-10.8); MONOCYTES # (AUTO) 1.1 10^3/uL (0.0-1.0); MONOCYTES % (AUTO) 8.7 %; NEUTROPHILS # (AUTO) 8.9 10^3/uL (1.5-6.6); NEUTROPHILS % (AUTO) 72.6 %; PLT - PLATELET COUNT 383 10^3/uL (130-450); RED BLOOD COUNT 3.54 10^6/uL (4.20-5.40); RED CELL DISTRIBUTION WIDTH 13.8 % (12.0-15.0); WHITE BLOOD COUNT 12.3 x10^3/uL (4.8-10.8)
--- NOTE | 2018-12-29 17:32 | ED Physician Documentation ---
PD HPI HEADACHE - Stated complaint Stated Complaint: HBP/ 4 DAYS - Chief complaint Chief Complaint: Neuro - History obtained from History obtained from: Patient - History of Present Illness Timing - onset: Last night (This is a 28-year-old woman with history of migraines. She gave 4 days ago and during the she did not have any trouble with migraines but prior to the was having a lot of problems with them. She had gradual onset occipital and throbbing lateral headache starting last night consistent with prior migraines associated with light sensitivity. She tried an Maxalt but it was of no relief.) Review of Systems Constitutional: denies: Fever, Chills Nose: denies: Rhinorrhea / runny nose, Congestion Cardiac: denies: Chest pain / pressure Respiratory: denies: Dyspnea, Cough PD PAST MEDICAL HISTORY - Past Medical History Cardiovascular: None Respiratory: None Neuro: Head injury, Seizure disorder Endocrine/Autoimmune: None GI: None : None Derm: None - Past Surgical History Past Surgical History: No - Present Medications Home Medications: Ambulatory Orders Medication Instructions Recorded Confirmed Rizatriptan Benzoate [Maxalt] 10 mg PO DAILY PRN #12 tablet 12/29/18 - Allergies Allergies/Adverse Reactions: Allergies Allergy/AdvReac Type Severity Reaction Status Date / Time Penicillins Allergy Unknown Verified 12/29/18 17:25 acetaminophen [From Percocet] AdvReac Nausea Verified 12/29/18 17:25 codeine AdvReac Nausea Verified 12/29/18 17:25 eszopiclone [From Lunesta] AdvReac Hallucinati Verified 12/29/18 17:25 ons hydrocodone [From Vicodin] AdvReac Nausea Verified 12/29/18 17:25 oxycodone [From Percocet] AdvReac Nausea Verified 12/29/18 17:25 quetiapine [From Seroquel] AdvReac Hallucinati Verified 12/29/18 17:25 ons - Social History Does the pt smoke?: Yes Smoking Status: Current every day smoker Does the pt drink ETOH?: No Does the pt have substance abuse?: Yes Substance Use and Type: Marijuana PD ED PE NORMAL - Vitals Vital signs reviewed: Yes - General General: Alert and oriented X 3, No acute distress - HEENT HEENT: PERRL, EOMI - Neck Neck: Supple, no meningeal sign, No bony TTP - Neuro Neuro: Alert and oriented X 3, fundraising officer 2-12 intact Eye Opening: Spontaneous Motor: Obeys Commands Verbal: Oriented GCS Score: 15 - Psych Psych: Normal mood, Normal affect Results - Vitals Vitals: Vital Signs - 24 hr 12/29/18 12/29/18 12/29/18 16:53 18:16 18:34 Temperature 36.5 C 36.9 C Heart Rate 111 H 91 92 Respiratory 20 16 16 Rate Blood Pressure 134/96 H 126/94 H 126/85 H O2 Saturation 100 97 97 Oxygen O2 Source Room air - Labs Labs: Laboratory Tests 12/29/18 12/29/18 12/29/18 17:23 17:23 17:23 WBC 12.3 H RBC 3.54 L Hgb 11.3 L Hct 34.1 L MCV 96.3 MCH 31.9 H MCHC 33.1 RDW 13.8 Plt Count 383 MPV 6.8 L Neut # (Auto) 8.9 H Lymph # (Auto) 2.1 [place] # (Auto) 1.1 H Eos # (Auto) 0.2 Baso # (Auto) 0.1 Absolute Nucleated RBC 0.01 Nucleated RBC % 0.1 PT 11.3 INR 1.0 APTT 28.1 Sodium 140 Potassium 4.1 Chloride 106 Carbon Dioxide 25 Anion Gap 9.0 BUN 10 Creatinine 0.6 Estimated GFR (MDRD) 119 Glucose 105 H Uric Acid Calcium 9.3 Total Bilirubin < 0.2 L AST 48 H ALT 51 Alkaline Phosphatase 85 Lactate Dehydrogenase Total Protein 6.8 Albumin 3.5 Globulin 3.3 Albumin/Globulin Ratio 1.1 Lipase 29 Urine Color Urine Clarity Urine pH Ur Specific Outlook Urine Protein Urine Glucose (UA) Urine Ketones Urine Occult Blood Urine Nitrite Urine Bilirubin Urine Urobilinogen Ur Leukocyte Esterase Urine RBC Urine WBC Urine WBC Clumps Ur Squamous Epith Cells Urine Bacteria Ur Microscopic Review Urine Culture Comments 12/29/18 12/29/18 12/29/18 17:23 17:23 17:40 WBC RBC Hgb Hct MCV MCH MCHC RDW Plt Count MPV Neut # (Auto) Lymph # (Auto) [place] # (Auto) Eos # (Auto) Baso # (Auto) Absolute Nucleated RBC Nucleated RBC % PT INR APTT Sodium Potassium Chloride Carbon Dioxide Anion Gap BUN Creatinine Estimated GFR (MDRD) Glucose Uric Acid 4.7 Calcium Total Bilirubin AST ALT Alkaline Phosphatase Lactate Dehydrogenase 178 Total Protein Albumin Globulin Albumin/Globulin Ratio Lipase Urine Color YELLOW Urine Clarity CLEAR Urine pH 6.5 Ur Specific Outlook <=1.005 Urine Protein NEGATIVE Urine Glucose (UA) NEGATIVE Urine Ketones NEGATIVE Urine Occult Blood LARGE H Urine Nitrite NEGATIVE Urine Bilirubin NEGATIVE Urine Urobilinogen 0.2 (NORMAL) Ur Leukocyte Esterase LARGE H Urine RBC 11-25 H Urine WBC >25 H Urine WBC Clumps PRESENT Ur Squamous Epith Cells FEW Squamous Urine Bacteria Many H Ur Microscopic Review INDICATED Urine Culture Comments INDICATED PD MEDICAL DECISION MAKING - ED course ED course: The headache is gradual in onset and similar to prior headaches. As such I doubt subarachnoid hemorrhage. There are no infectious symptoms such as fever or stiff neck to make me suspect meningitis. No carbon monoxide exposure by history. After IVF, reglan, benadryl and toradol she was much better. She was already aware of the UTI and is on abx for same. Departure - Departure Disposition: Home, Self Care Clinical Impression: Migraine Condition: Good Record reviewed to determine appropriate education?: Yes Instructions: ED Headache Migraine Prescriptions: Rizatriptan Benzoate [Maxalt] 10 mg PO DAILY PRN #12 tablet PRN Reason: Headache Comments: Call your doctor to arrange a follow-up appointment, make the next available appointment. In the interim, return anytime if worse or if new symptoms develop. Your blood pressure was elevated today on check into the emergency department. This does not mean that you have hypertension, it is a common phenomenon to come to the emergency department and have elevated blood pressure. I recommend that you see your primary care physician within the week to have it rechecked when you are feeling better. Discharge Date/Time: 12/29/18 18:34
[2018-12-29 17:36] LABS: PT - PROTHROMBIN TIME 11.3 secs (9.9-12.6)
[2018-12-29 17:40] LABS: ALBUMIN 3.5 g/dL (3.2-5.5); ALBUMIN/GLOBULIN RATIO 1.1 (1.0-2.2); ALKALINE PHOSPHATASE 85 IU/L (42-121); ALT ALANINE AMINOTRANSFERASE 51 IU/L (10-60); AST ASPARTATE AMINOTRANSFERASE 48 IU/L (10-42); BILIRUBIN,TOTAL < 0.2 mg/dL (0.2-1.0); BUN - BLOOD UREA NITROGEN 10 mg/dL (6-20); CALCIUM 9.3 mg/dL (8.5-10.3); CARBON DIOXIDE - CO2 25 mmol/L (21-32); CHLORIDE 106 mmol/L (101-111); CREATININE 0.6 mg/dL (0.4-1.0); GFR - MDRD 119 (>89); GLUCOSE 105 mg/dL (70-100); LIPASE 29 U/L (22-51); SODIUM 140 mmol/L (135-145); TOTAL PROTEIN 6.8 g/dL (6.7-8.2)
[2018-12-29] MEDS: METOCLOPRAMIDE 10 MG/2 ML VIAL IVP STA (17:46)
[2018-12-29] MEDS: KETOROLAC 30 MG/ML VIAL IVP STA (17:46)
[2018-12-29] MEDS: SODIUM CHLORIDE 0.9% 1,000 ML IV ONE (17:46)
[2018-12-29] MEDS: diphenhydrAMINE INJ 50 MG/ML VIAL IVP STA (17:46)
[2018-12-29 17:49] LABS: BILIRUBIN,URINE NEGATIVE (NEGATIVE); GLUCOSE, URINE (UA) NEGATIVE (NEGATIVE); KETONES,URINE (UA) NEGATIVE (NEGATIVE); LEUKOCYTE ESTERASE, URINE LARGE (NEGATIVE); NITRITE,URINE NEGATIVE (NEGATIVE); OCCULT BLOOD,URINE LARGE (NEGATIVE); PH,URINE 6.5 PH (5.0-7.5); PROTEIN,URINE NEGATIVE (NEGATIVE); UROBILINOGEN,URINE 0.2 (NORMAL) E.U./dL (NORMAL)
[2018-12-29 17:58] LABS: CLARITY,URINE CLEAR (CLEAR)
[2018-12-29 18:00] LABS: BACTERIA,URINE Many /HPF (None Seen); SQUAMOUS EPITHELIAL CELL,UR FEW Squamous (<= Few); WBC CLUMPS,URINE PRESENT
[2018-12-29 18:36] VITALS: BP 126/85
== END 2018-12-29 18:34 | disposition home or self-care (01) ==
LOC: ED 16:45
DX: O90.89 Other complications of the puerperium, not elsewhere classified (principal); O86.20 Urinary tract infection following delivery, unspecified; G43.909 Migraine, unspecified, not intractable, without status migrainosus; R03.0 Elevated blood-pressure reading, without diagnosis of hypertension
CPT/HCPCS: 36415; 80053; 81001; 83615; 83690; 84550; 85025; 85610; 85730; 87086; 96361; 96374; 99283; 99284; J1200; J2765; 81003

== ENCOUNTER 2019-07-07 14:22 | Outpatient (CLI) | payer MEDICAID | END 2019-07-07 14:23 | disposition home or self-care (01) | LOC: LAB.S 14:22 | PROVIDERS: ATTEND Nurse Practitioner Obstetrics & Gynecology | DX: N95.1 Menopausal and female climacteric states (principal) | CPT/HCPCS: 36415; 84443 ==

== ENCOUNTER 2020-05-17 14:50 | Outpatient (CLI) | payer MEDICAID ==
[2020-05-17 15:48] LABS: PROLACTIN 7.39 ng/mL
[2020-05-17 16:09] LABS: HB2 TOTAL 13.3 g/dL; HEMOGLOBIN A1C 0.56 g/dL
[2020-05-17 16:12] LABS: FOLLICLE STIMULATING HORMONE 6.14 mIU/mL
== END 2020-05-17 14:51 | disposition home or self-care (01) ==
LOC: LAB 14:50
PROVIDERS: ATTEND Advanced Practice Midwife
DX: N95.1 Menopausal and female climacteric states (principal)
CPT/HCPCS: 36415; 82670; 83001; 83036; 84146; 84443

== ENCOUNTER 2022-01-21 15:03 | Outpatient (CLI) | payer MEDICAID ==
--- NOTE | 2022-01-21 16:52 | XRAY Report ---
PROCEDURE: Foot 3 View LT INDICATIONS: LEFT FOOT PAIN TECHNIQUE: 3 views of the foot were acquired. COMPARISON: 07/22/2015 FINDINGS: Bones: No fractures or dislocations. No suspicious bony lesions. History ossicle is incidentally noted medial to the navicular bone. Soft tissues: No tibiotalar joint effusion. Achilles tendon appears normal. IMPRESSION: Unremarkable left foot. No evidence of acute bony abnormality. Reviewed by: Sahil Solis MD on 01/21/2022 3:51 PM [facility] Approved by: Sahil Solis MD on 01/21/2022 3:51 PM [facility] Station ID: [id number]
--- NOTE | 2022-01-21 16:53 | XRAY Report ---
PROCEDURE: Ankle 3 View LT INDICATIONS: LEFT ANKLE PAIN TECHNIQUE: 3 views of the ankle were acquired. COMPARISON: Left foot from the same date FINDINGS: Bones: No fractures or dislocations. Ankle mortise is normally aligned. No suspicious bony lesions . Soft tissues: No tibiotalar joint effusion. Achilles tendon appears normal. IMPRESSION: No evidence acute bony abnormality of the left ankle. If clinical suspicion and/or symptoms persist, further assessment with repeat plain films or advanced imaging (e.g., CT, MRI, or bone scan) may be helpful for further assessment. Reviewed by: Sahil Solis MD on 01/21/2022 3:51 PM [facility] Approved by: Sahil Solis MD on 01/21/2022 3:51 PM [facility] Station ID: [id number]
== END 2022-01-21 23:59 | disposition home or self-care (01) ==
LOC: DI.S 15:03
PROVIDERS: ATTEND Physician Assistant
DX: M25.572 Pain in left ankle and joints of left foot (principal); M79.605 Pain in left leg; M79.672 Pain in left foot

== ENCOUNTER 2022-09-20 20:26 | Emergency (ER) | payer MEDICAID ==
[2022-09-20] MEDS ORDERED: IBUPROFEN 800 MG TABLET PO STA (20:47)
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
[2022-09-20] MEDS ORDERED: OXYMETAZOLINE HCL 100 SPRAYS BOTTLE NAS STA (22:28)
[2022-09-20 22:36] VITALS: BP 146/87
== END 2022-09-20 22:46 | disposition home or self-care (01) ==
LOC: ED 20:26
DX: S02.2XXA Fracture of nasal bones, initial encounter for closed fracture (principal); S09.93XA Unspecified injury of face, initial encounter; V49.9XXA Car occupant (driver) (passenger) injured in unspecified traffic accident, initial encounter; F17.200 Nicotine dependence, unspecified, uncomplicated
CPT/HCPCS: 12011; 70450; 70486; 72125; 99284; A9270

== ENCOUNTER 2022-12-08 08:00 | Outpatient (CLI) | payer MEDICAID ==
[2022-12-08 19:12] LABS: KETONES,URINE (UA) TRACE mg/dL (NEGATIVE); LEUKOCYTE ESTERASE, URINE MODERATE (NEGATIVE); NITRITE,URINE POSITIVE (NEGATIVE); OCCULT BLOOD,URINE TRACE-INTA (NEGATIVE)
[2022-12-08 19:16] LABS: CLARITY,URINE CLOUDY (CLEAR)
[2022-12-08 19:32] LABS: BACTERIA,URINE Many /HPF (None Seen); BILIRUBIN,URINE COLOR INTERFERENCE (NEGATIVE); SQUAMOUS EPITHELIAL CELL,UR FEW Squamous (<= Few); WBC,URINE >25 /HPF (0-5)
== END 2022-12-08 23:59 | disposition home or self-care (01) ==
LOC: LAB.R 08:00
PROVIDERS: ATTEND Emergency Medicine
DX: R30.0 Dysuria (principal)
CPT/HCPCS: 81001; 87077; 87086; 87181